=== PATIENT | female | born 1965 | race Hispanic/Latino ===

== ENCOUNTER 2021-11-07 16:00 | Emergency (ER) | payer OTHER ==
[~2021-11-07 16:00] MED LIST: Iopamidol 370 76% 100 ML VIAL ONE
[2021-11-07] MEDS ORDERED: Acetaminophen 500 MG TAB ONE (17:06)
[2021-11-07] MEDS ORDERED: Orphenadrine Citrate 60 MG/2 ML VIAL ONE (17:06)
[2021-11-07 17:32] LABS: #Basophils 0.1 thou/uL (0.0-0.2); #Eosinphils 0.1 thou/uL (0.0-0.7); #Lymphocytes 2.2 thou/uL (1.20-3.40); #Monocytes 0.6 thou/uL (0.11-0.59); #Neutrophils 4.2 thou/uL (1.40-6.50); %Basophils 0.9 % (0.0-1.0); %Eosinophils 0.7 % (0.0-10.0); %Lymphocytes 30.7 % (21.0-51.0); %Monocytes 8.3 % (0.0-10.0); %Neutrophils 59.3 % (42.0-75.0); Hemoglobin 13.1 g/dL (12.0-16.0); Mean Corpuscular Hemoglobin 30.1 pg (27.0-31.0); Mean Platelet Volume 9.3 fL (7.4-10.4); Platelet Count 241 thou/uL (130-400); RBC Distribution Width 12.2 % (11.5-14.5); Red Blood Cell (RBC) Count 4.34 mill/uL (4.20-5.40); White Blood Cell (WBC) Count 7.2 thou/uL (4.8-10.8)
[2021-11-07] MEDS ORDERED: Boostrix 0.5 ML (Tdap) VIAL ONE (17:40)
[2021-11-07 17:50] LABS: ALT (SGPT) 43 U/L (8-55); AST (SGOT) 25 U/L (5-34); Albumin 4.4 g/dL (3.5-5.0); Alkaline Phosphatase 112 U/L (40-110); Anion Gap 17 mmol/L (10-20); BUN (Urea Nitrogen) 17 mg/dL (9.8-20.1); Bilirubin, Total 0.2 mg/dL (0.2-1.2); Calc. Creatinine Clearance 0 mL/min (70-130); Calcium 9.3 mg/dL (7.8-10.44); Carbon Dioxide 23 mmol/L (22-29); Chloride 107 mmol/L (98-107); Globulin 3.3 g/dL (2.4-3.5); Glucose 99 mg/dL (70-105); Lipase 50 U/L (8-78); Potassium 4.1 mmol/L (3.5-5.1); Protein, Total 7.7 g/dL (6.0-8.3); Sodium 143 mmol/L (136-145)
[2021-11-07 18:51] LABS: Bilirubin Negative (Negative); Blood, Urine Trace (Negative); Glucose, Urine (Dipstick) Negative (Negative); Ketone, Urine Trace mg/dL (Negative); Leukocyte Negative (Negative); Nitrite Negative (Negative); Protein, Urine (Dipstick) 30 mg/dL (Neg-Trace); Specific Gravity, Urine 1.025 (1.005-1.030); Urobilinogen 0.2 mg/dL (Less than 2); pH, Urine 6.5 (5.0-9.0)
[2021-11-07 18:52] LABS: Clarity Hazy (Clear)
[2021-11-07 18:57] LABS: Bacteria/HPF Rare-Few HPF (None Seen); Mucous/LPF 2+ LPF (<2+); WBC/HPF 0-3 HPF (0-3)
== END 2021-11-07 19:57 | disposition home or self-care (01) ==
LOC: MADERS 16:00
DX: S06.0X0A Concussion without loss of consciousness, initial encounter (principal); S40.211A Abrasion of right shoulder, initial encounter; M54.2 Cervicalgia; R07.2 Precordial pain; I10 Essential (primary) hypertension; G40.909 Epilepsy, unspecified, not intractable, without status epilepticus; V43.62XA Car passenger injured in collision with other type car in traffic accident, initial encounter
CPT/HCPCS: 70450; 71260; 72125; 80053; 81003; 81015; 83690; 84484; 85025; 90471; 90715; 93005; 94760; 96372; J2360; Q9967